=== PATIENT | female | born 1995 | race Hispanic/Latino ===

== ENCOUNTER 2023-04-01 11:07 | Emergency (ER) | payer SELFPAY ==
[2023-04-01] MEDS ORDERED: NAPROXEN500 MG PO (13:21)
[2023-04-01 13:30] VITALS: BP 122/78
== END 2023-04-01 13:22 | disposition home or self-care (01) | DRG 605 ==
LOC: ED 11:07
DX: S00.93XA Contusion of unspecified part of head, initial encounter (principal); M54.2 Cervicalgia; M25.512 Pain in left shoulder; W10.9XXA Fall (on) (from) unspecified stairs and steps, initial encounter